=== PATIENT | female | born 1990 | race Caucasian/White ===

== ENCOUNTER 2017-12-10 05:21 | Emergency (ER) | payer OTHER ==
[~2017-12-10] VITALS: Ht 162.6 cm; Wt 64.0 kg
[2017-12-10 05:23] VITALS: BP 132/90
[2017-12-10 05:58] LABS: URINE HCG NEGATIVE (NEG)
[2017-12-10 06:37] LABS: CLARITY,URINE SLIGHTLY CLOUDY (Clear); COLOR,URINE YELLOW (Yellow); GLUCOSE, URINE NEGATIVE (Neg); KETONES,URINE NEGATIVE (Neg); LEUKOCYTE ESTERASE ,URINE TRACE (Neg); NITRITES, URINE NEGATIVE (Neg); OCCULT BLOOD,URINE NEGATIVE (Neg); PH,URINE 6.5 (4.8-8.0); PROTEIN,URINE NEGATIVE (Neg); UA COLLECTION TYPE CLN CATCH MIDSTREAM
[2017-12-10 06:48] LABS: MUCUS STRANDS MANY /LPF (Neg); SQUAMOUS EPITHELIAL CELL,UR MANY /LPF (FEW)
[2017-12-10 06:55] LABS: BACTERIA,URINE 3+ /HPF (Neg); RBC,URINE 0-2 /HPF (0-2); WBC,URINE 20-30 /HPF (0-4)
== END 2017-12-10 06:02 | disposition left against medical advice (07) ==
LOC: ER 05:22
DX: R21 Rash and other nonspecific skin eruption (principal); Z56.0 Unemployment, unspecified
CPT/HCPCS: 81001; 81025; 99284

== ENCOUNTER 2024-06-03 12:50 | Emergency (ER) | payer MEDICAID ==
[~2024-06-03] VITALS: Ht 157.5 cm; Wt 84.1 kg
[2024-06-03 12:52] VITALS: BP 128/80; PULSE 100; RESP 16; O2SAT 100
[2024-06-03 13:22] VITALS: TEMP 98.3
== END 2024-06-03 13:25 | disposition home or self-care (01) ==
LOC: ER 12:52
DX: T19.2XXA Foreign body in vulva and vagina, initial encounter (principal); Z56.0 Unemployment, unspecified; W44.9XXA Unspecified foreign body entering into or through a natural orifice, initial encounter; Y93.89 Activity, other specified; Y92.89 Other specified places as the place of occurrence of the external cause; Y99.8 Other external cause status
CPT/HCPCS: 99283

== ENCOUNTER 2024-10-25 22:05 | Emergency (ER) | payer MEDICAID ==
[~2024-10-25] VITALS: Ht 157.5 cm; Wt 77.3 kg
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
[2024-10-25] MEDS: ketorolac trometh 15mg/ml vial 15 MG/ML ML IM ONE (23:17)
[2024-10-25] MEDS: orphenadrine citrate 60mg/2ml inj. IM ONE (23:17)
[2024-10-25 23:32] VITALS: BP 138/89; PULSE 98; RESP 16; TEMP 98.3; O2SAT 98
== END 2024-10-25 23:38 ==
LOC: ER 22:05
DX: Z02.89 Encounter for other administrative examinations (principal)
CPT/HCPCS: 96372; 99284; J1885; J2360